=== PATIENT | female | born 1995 ===

== ENCOUNTER 2017-01-09 18:41 | Emergency (ER) | payer OTHER ==
[2017-01-09 19:01] VITALS: BP 118/66
--- NOTE | 2017-01-11 18:03 | UC ---
Progress - Progress Note Progress Note: Lyme test is negative. May stop doxycycline. If her symptoms are worsening or persisting despite hydrocortisone tx - should fu with PCP. <Glenn Garcia - Last Filed: 01/11/17 18:03> Attestation Statement User Type: Provider - I was available for consult. This patient was seen by the ANNY. The patient was not presented to, seen by, or examined by me. -Mel <Nicole Temple - Last Filed: 01/12/17 14:18>
--- NOTE | 2017-01-14 08:58 | UC ---
Jesusita Wright Emily, scribed for Nicole Temple MD on 01/09/17 at 1926 . Skin Complaint HPI - HPI Summary HPI Summary: This patient is a 21 year old F presenting to urgent care with a chief complaint of bug bites on bilateral upper extremities that began 5 days ago. Pt reports a red ring around the bites. Symptoms worsened C [employer]. Symptoms aggravated by nothing. Symptoms alleviated by nothing. Patient reports fever and chills. Patients medications reviewed this visit. - History of Current Complaint Chief Complaint: UCSkin Time Seen by Provider: 01/09/17 19:15 Stated Complaint: BUG BITES Hx Obtained From: Patient Hx Last Menstrual Period: Onset/Duration: Sudden Onset, Lasting Days, Still Present Aggravating Factor(s): Nothing Alleviating Factor(s): Nothing - Allergy/Home Medications Allergies/Adverse Reactions: Allergies Allergy/AdvReac Type Severity Reaction Status Date / Time No Known Allergies Allergy Verified 01/09/17 19:01 Home Medications: Home Medications [id number] W/ APAP [Tylenol Cold & Flu Severe [id number] mg] 1 [History] Review of Systems Constitutional: Fever, Chills Skin: Rash, Other - Positive bug bites with red rings All Other Systems Reviewed And Are Negative: Yes PMH/Surg Hx/FS Hx/Imm Hx Previously Healthy: Yes Endocrine History: Other Other Endocrine History: Negative diabetes Cardiovascular History: Other Other Cardiovascular History: Negative hypertension - Surgical History Surgical History: None - Family History Known Family History: Negative: Cardiac Disease, Diabetes - Social History Occupation: Student Lives: Dormitory/Roommates Alcohol Use: Occasionally Substance Use Type: Marijuana Smoking Status (MU): Never Smoked Tobacco Physical Exam Triage Information Reviewed: Yes Appearance: Well-Appearing, No Pain Distress, Well-Nourished Vital Signs: Initial Vital Signs Temp 98.6 F 01/09/17 18:51 Pulse 103 01/09/17 18:51 Resp 16 01/09/17 18:51 BP 118/66 01/09/17 18:51 Pulse Ox 100 01/09/17 18:51 Eye Exam: Normal Eyes: Positive: Conjunctiva Clear ENT Exam: Normal ENT: Positive: Normal ENT inspection, Hearing grossly normal, Pharynx normal, TMs normal Dental Exam: Normal Neck exam: Normal Neck: Positive: Supple Respiratory Exam: Normal Respiratory: Positive: Chest non-tender, Lungs clear, Normal breath sounds, No respiratory distress, No accessory muscle use Cardiovascular Exam: Normal Cardiovascular: Positive: RRR, No Murmur Abdominal Exam: Normal Abdomen Description: Positive: Nontender Bowel Sounds: Positive: Present Musculoskeletal Exam: Normal Neurological Exam: Normal Psychological Exam: Normal Skin: Positive: Other - Pt with 7 areas on arms leftwith scab like lesions surrounded by red, flat, halo appearing ring. not raised. not puritic Course/Dx - Course Course Of Treatment: Pt with scab with surrounding erythema. Pt resports thinks bug bites - does not know of tick bite. Pt well appearing without other concerns. Wounds concerning for lyme. Will start doxy - 10 day supply. referral to ID. lyme titer. pt comfortable and in agreement with plan - Diagnoses Provider Diagnoses: rash, concerning for lyme Discharge - Discharge Plan Condition: Stable Disposition: HOME Prescriptions: DOXYcycline CAP(*) [DOXYcycline 100MG CAP(*)] 100 mg PO BID #20 cap Patient Education Materials: Lyme Disease (ED), Acute Rash (ED) Referrals: Kathy BHATTI,Wiliam Torres [Medical Doctor] - Additional Instructions: The doctor that evaluated you today is concerned your wounds may be related to Lyme's Disease. A blood test for Lyme has been ordered today. These results may take up to 10 days to come back. The following is recommended: - Start taking Doxycycline 2 time a day as prescribed. The doctor has given you a 10 days course. If your results are positive for Lyme disease you will need an additional 11 days (total 21 days). You will receive a follow-up call from a care team provider if your Lyme test is positive - Okay to apply a thin layer of hydrocortisone cream as needed for itching - Contact the [facility] to schedule a follow-up appointment later this week. You have also been given the name of the infectious disease doctor. If your Lyme test is positive, you may also follow-up with this provider. Contact [facility] or return with any questions or concerns The documentation as recorded by the Jesusita bolaños Emily accurately reflects the service I personally performed and the decisions made by me, Nicole Temple MD.
== END 2017-01-09 19:48 | disposition home or self-care (01) ==
LOC: UCEAST 18:41
DX: R21 Rash and other nonspecific skin eruption (principal); R50.9 Fever, unspecified
CPT/HCPCS: 86618; 99202; G0463

== ENCOUNTER 2017-05-04 01:03 | Emergency (ER) | payer OTHER ==
[2017-05-04 01:46] LABS: ABS Basophils 0.1 10^3/ul (0-0.2); ABS Eosinophils 0.1 10^3/ul (0-0.6); ABS Monocytes 0.7 10^3/ul (0-0.8); ABS Neutrophils 5.1 10^3/ul (1.5-7.7); ABS Nucleated RBC 0 10^3/ul; Eosinophil % 0.8 % (0-6); Hematocrit 38 % (35-47); Hemoglobin 12.7 g/dl (12.0-16.0); Lymphocyte % 25.2 % (25-47); Mean Corpuscular HGB Conc 34 g/dl (31-36); Mean Corpuscular Hemoglobin 31 pg (27-31); Mean Corpuscular Volume 91 fL (80-97); Mean Platelet Volume 7.9 um3 (7.4-10.4); Nucleated Red Blood Cells % 0; Platelet Count 221 10^3/ul (150-450); Red Blood Count 4.15 10^6/ul (4.0-5.4); Red Cell Distribution Width 13 % (10.5-15); White Blood Count 7.8 10^3/ul (3.5-10.8)
[2017-05-04 02:00] LABS: Urine Appearance Cloudy; Urine Blood 2+ (Negative); Urine Color Yellow; Urine Ketones Negative (Negative); Urine Protein Negative (Negative); Urine Specific Gravity 1.019 (1.010-1.030); Urine Urobilinogen Negative (Negative)
[2017-05-04 02:05] LABS: EGFR Non-African American 108.5 (>60)
[2017-05-04 04:23] VITALS: BP 111/76
--- NOTE | 2017-05-19 02:03 | ED ---
Brandon Wright Rebecca, scribed for Andrews Olguin MD on 05/04/17 at 0131 . Psychiatric Complaint - HPI Summary HPI Summary: Pt is a 22 y/o F who presents to ED c/o anxiety and depression. Pt states " I don't really know what's going on in my head." Sx aggravated and alleviated by nothing. Denies SIs, auditory hallucinations. Pt is not currently taking any medication, as her doctor is in [facility] so she has not been able to get her Rx filled. Saw a psychiatrist locally for the first time 3 weeks ago, though they have no started any medications. Prior similar episodes. PMHx depression, PTSD, and anxiety. LNMP a few days ago. - History Of Current Complaint Chief Complaint: EDMentalHealth Time Seen by Provider: 05/04/17 01:16 Hx Obtained From: Patient Hx Last Menstrual Period: Onset/Duration: Still Present Character: Depressed, Anxious Aggravating Factor(s): Nothing Alleviating Factor(s): Nothing Associated Signs And Symptoms: Positive: Negative. Negative: Hallucinating Related History: Positive For: Prior Psychiatric Issues - Anxiety, depression, PTSD Has Suicidal: Denies: Thoughts - Allergies/Home Medications Allergies/Adverse Reactions: Allergies Allergy/AdvReac Type Severity Reaction Status Date / Time No Known Allergies Allergy Verified 05/04/17 01:12 PMH/Surg Hx/FS Hx/Imm Hx Endocrine/Hematology History: Denies: Hx Diabetes Cardiovascular History: Denies: Hx Hypertension Psychiatric History: Reports: Hx Anxiety, Hx Depression, Hx Post Traumatic Stress Disorder Infectious Disease History: No Infectious Disease History: Denies: Traveled Outside the [place] in Last 30 Days - Family History Known Family History: Negative: Diabetes - Social History Alcohol Use: Occasionally Substance Use Type: Reports: Marijuana Smoking Status (MU): Never Smoked Tobacco Review of Systems Negative: Fever Neurological: Other - NEGATIVE: Hallucinations Positive: Anxious, Depressed, Other - NEGATIVE: SIs All Other Systems Reviewed And Are Negative: Yes Physical Exam - Summary Physical Exam Summary: VITAL SIGNS: Reviewed. GENERAL: ~Patient is a well-developed and nourished female who is lying comfortable in the stretcher. Patient is not in any acute respiratory distress. She is tearful and appears upset. Cooperative. HEAD AND FACE: No signs of trauma. No ecchymosis, hematomas or skull depressions. No sinus tenderness. EYES: PERRLA, EOMI x 2, No injected conjunctiva, no nystagmus. EARS: Hearing grossly intact. Ear canals and tympanic membranes are within normal limits. MOUTH: Oropharynx within normal limits. NECK: Supple, trachea is midline, no adenopathy, no JVD, no carotid bruit, no c- spine tenderness, neck with full ROM. CHEST: Symmetric, no tenderness at palpation LUNGS: Clear to auscultation bilaterally. No wheezing or crackles. CVS: Regular rate and rhythm, S1 and S2 present, no murmurs or gallops appreciated. EXTREMITIES: FROM in all major joints, no edema, no cyanosis or clubbing. NEURO: Alert and oriented x 3. No acute neurological deficits. Speech is normal and follows commands. SKIN: Dry and warm Triage Information Reviewed: Yes Vital Signs On Initial Exam: Initial Vitals Temp Pulse Resp BP Pulse Ox 98.0 F 76 16 116/77 97 05/04/17 01:05 05/04/17 01:05 05/04/17 01:05 05/04/17 01:05 05/04/17 01:05 Vital Signs Reviewed: Yes Diagnostics - Vital Signs Vital Signs Temp Pulse Resp BP Pulse Ox 05/04/17 01:05 98.0 F 76 16 116/77 97 - Laboratory Result Diagrams: 05/04/17 01:35 05/04/17 01:35 Lab Statement: Any lab studies that have been ordered have been reviewed, and results considered in the medical decision making process. Course/Dx - Course Assessment/Plan: Pt is a 22 y/o F who presents to ED c/o anxiety and depression. Pt states " I don't really know what's going on in my head." Sx aggravated and alleviated by nothing. Denies SIs, auditory hallucinations. Pt is not currently taking any medication, as her doctor is in [facility] so she has not been able to get her Rx filled. Saw a psychiatrist locally for the first time 3 weeks ago, though they have no started any medications. Prior similar episodes. PMHx depression, PTSD, and anxiety. LNMP a few days ago. Medically cleared for MHE at 0240. Upon completion of her MHE and consultation with Dr. Mukherjee, it has been determiend that the pt can be D/C to home with a Dx of depression. She understands and agrees. - Differential Dx/Clinical Impression Provider Diagnosis: Depression Discharge - Sign-Out/Discharge Documenting (check all that apply): Discharge - Discharge Plan Condition: Stable Disposition: HOME Referrals: No Primary Care Phys,NOPCP [Primary Care Provider] - The documentation as recorded by the Brandon bolaños Rebecca accurately reflects the service I personally performed and the decisions made by me, Andrews Olguin MD.
== END 2017-05-04 04:17 | disposition home or self-care (01) ==
LOC: ED 01:03
DX: F32.9 Major depressive disorder, single episode, unspecified (principal); F41.8 Other specified anxiety disorders
CPT/HCPCS: 36415; 80053; 80307; 80320; 80329; 81003; 81015; 84443; 84702; 85025; 87086; 99284; G0480